=== PATIENT | female | born 1955 | race Caucasian/White ===

== ENCOUNTER 2023-02-12 10:12 | Outpatient (CLI) | payer MEDICARE, BC | END 2023-02-12 10:13 | disposition home or self-care (01) | LOC: DTY/OP 10:12 | PROVIDERS: ATTEND Internal Medicine | DX: G35 Multiple sclerosis (principal); E11.9 Type 2 diabetes mellitus without complications; M10.00 Idiopathic gout, unspecified site; E78.5 Hyperlipidemia, unspecified; I10 Essential (primary) hypertension | CPT/HCPCS: 97802 ==

== ENCOUNTER 2023-11-13 23:47 | Inpatient (IN) | payer BC, MEDICARE ==
[2023-11-13] MEDS ORDERED: KETAMINE 100 MG/ML (5ML VIAL) ONE (23:57)
[2023-11-13] MEDS ORDERED: Rocuronium Bromide 10 MG/ML (10ML VIAL) ONE (23:58)
[2023-11-14] MEDS ORDERED: fentaNYL 50 mcg/mL 1 mL Vial ONE (00:03)
[2023-11-14 00:07] LABS: #Eosinphils 0.1 thou/uL (0.0-0.7); #Monocytes 0.4 thou/uL (0.11-0.59); #Neutrophils 3.9 thou/uL (1.40-6.50); %Basophils 0.8 % (0.0-1.0); %Eosinophils 2.3 % (0.0-10.0); %Lymphocytes 11.7 % (21.0-51.0); %Monocytes 7.2 % (0.0-10.0); %Neutrophils 76.8 % (42.0-75.0); Hematocrit 39.3 % (36.0-47.0); Mean Corpuscular HGB CONC 33.1 g/dL (32.0-36.0); Mean Corpuscular Volume 90.6 fl (78.0-98.0); Mean Platelet Volume 11.2 fL (7.4-10.4); Platelet Count 141 10x3/uL (130-400); RBC Distribution Width 14.8 % (11.5-14.5); Red Blood Cell (RBC) Count 4.34 mill/uL (4.20-5.40); White Blood Cell (WBC) Count 5.1 10x3/uL (4.8-10.8)
[2023-11-14] MEDS ORDERED: Fentanyl CADD 100 ML IV SCH (00:15)
[2023-11-14] MEDS ORDERED: levETIRAcetam 500 MG (5 mL) VIAL ONE (00:24)
[2023-11-14 00:27] LABS: Analyzer IN Cardio ER; Base Excess (BEa) -2.4 mEq/L (-2.0 to +3.0); CO2 Tension 28.5 mmHg (35.0-45.0); Calcium, Ionized (arterial) 1.32 mmol/L (1.12-1.30); Carboxyhemoglobin (COHb) 0.9 gm% (0.0-3.0); Hematocrit-ABG 40 % (36.0-47.0); Hemoglobin (Hb) 13.7 g/dL (12.0-16.0); O2 Tension (PaO2), arterial 300.9 mmHg (> 70.0); Potassium - ABG Lab 4.33 mmol/L (3.70-5.30); pH, Arterial 7.465 (7.35-7.45)
[2023-11-14 00:30] LABS: ALT (SGPT) 36 U/L (8-55); AST (SGOT) 36 U/L (5-34); Albumin 4.2 g/dL (3.4-4.8); Alkaline Phosphatase 58 U/L (40-110); Anion Gap 15 mmol/L (10-20); BUN (Urea Nitrogen) 37 mg/dL (9.8-20.1); Bilirubin, Total 0.4 mg/dL (0.2-1.2); Calc. Creatinine Clearance 0 mL/min (70-130); Calcium 11.1 mg/dL (7.8-10.44); Carbon Dioxide 19 mmol/L (23-31); Chloride 107 mmol/L (98-107); Estimated GFR 36; Globulin 3.6 g/dL (2.4-3.5); Glucose 257 mg/dL (80-115); Potassium 4.2 mmol/L (3.5-5.1); Protein, Total 7.8 g/dL (5.8-8.1); Sodium 137 mmol/L (136-145)
[2023-11-14 00:34] LABS: ALV-art Gradient 19.975 mmHg (0-20); Puncture Site LRA
[2023-11-14 00:36] LABS: Acetaminophen Less than 10 mcg/mL (10.0-30.0); Alcohol Less than 10.0 mg/dL (Less than 10); Magnesium 1.3 mg/dL (1.6-2.6); Salicylate Less than 8.0 mg/dL (15.0-30.0)
[2023-11-14 00:41] LABS: Troponin I Less than 0.010 ng/mL (< 0.028)
[2023-11-14 01:34] LABS: Bacteria/HPF 4+ HPF (None Seen); Bilirubin Negative (Negative); Blood, Urine Trace (Negative); CAUTI Indications for Culture Alt mental st,lethar; Clarity Turbid (Clear); Glucose, Urine (Dipstick) Normal (Negative); Ketone, Urine 10 mg/dL (Negative); Leukocyte 75 Leu/uL (Negative); Nitrite Negative (Negative); Protein, Urine (Dipstick) 20 mg/dL (Neg-Trace); RBC/HPF 0-3 HPF (0-3); Specific Gravity, Urine 1.021 (1.002-1.036); Squamous Epithelial 0-3 HPF (0-3); Urobilinogen Normal mg/dL (Less than 2)
[2023-11-14 01:36] LABS: Urine Culture Reflex No No
[2023-11-14 01:39] LABS: Amphetamine Not Detected (NotDetected); Barbiturates Screen Not Detected (NotDetected); Benzodiazepine Screen Not Detected (NotDetected); Cocaine Metabolite Screen Not Detected (NotDetected); Methadone Not Detected (NotDetected); Methamphetamine Not Detected (NotDetected); Opiate Screen Detected (NotDetected); Oxycodone Screen Not Detected (NotDetected); Phencyclidine (PCP) Not Detected (NotDetected); THC/Cannabinoid Screen Not Detected (NotDetected); Tricyclic Screen Not Detected (NotDetected)
[2023-11-14] MEDS ORDERED: Propofol 1,000 MG/100 ML VIAL IV ONE (01:39)
[2023-11-14] MEDS ORDERED: Glucagon 1 MG/ML KIT IM PRN (02:28)
[2023-11-14] MEDS ORDERED: Ventilator Sedation Protocol 1 EACH FS SCH (02:28)
[2023-11-14] MEDS ORDERED: Dextrose 50% Abboject 50 ML SYRINGE SLOW IVP PRN (02:28)
[2023-11-14] MEDS ORDERED: Dextrose 5% in Water 1,000 ML IV PRN (02:28)
[2023-11-14] MEDS ORDERED: Magnesium 2 GM/50 ML(in water) 2 GM in Premix 1 BAG IVPB SCH (02:45)
[2023-11-14] MEDS ORDERED: Propofol 1,000 MG/100 ML VIAL IV PRN (03:00)
[2023-11-14] MEDS ORDERED: Lorazepam 2 MG/ML VIAL SLOW IVP PRN (03:00)
[2023-11-14] MEDS ORDERED: Morphine 2 MG/ML VIAL SLOW IVP PRN (03:00)
[2023-11-14] MEDS ORDERED: Fentanyl BOLUS 250 ML IVPB PRN (03:00)
[2023-11-14] MEDS ORDERED: Propofol BOLUS 1,000 MG/100 ML VIAL IV PRN (03:00)
[2023-11-14] MEDS: Sodium Chloride 0.9% 1,000 ML IV SCH ×2 (04:24→13:57)
[2023-11-14] MEDS: HumaLOG 300 UNITS/3 ML VIAL SC PRN ×4 (04:44→21:40)
[2023-11-14 06:51] LABS: ALT (SGPT) 27 U/L (8-55); AST (SGOT) 24 U/L (5-34); Albumin 3.4 g/dL (3.4-4.8); Alkaline Phosphatase 46 U/L (40-110); Anion Gap 14 mmol/L (10-20); BUN (Urea Nitrogen) 32 mg/dL (9.8-20.1); Bilirubin, Total 0.3 mg/dL (0.2-1.2); Calc. Creatinine Clearance 76 mL/min (70-130); Calcium 9.1 mg/dL (7.8-10.44); Carbon Dioxide 17 mmol/L (23-31); Chloride 97 mmol/L (98-107); Estimated GFR 58; Globulin 2.5 g/dL (2.4-3.5); Glucose 293 mg/dL (80-115); Potassium 3.5 mmol/L (3.5-5.1); Protein, Total 5.9 g/dL (5.8-8.1); Sodium 124 mmol/L (136-145)
[2023-11-14] MEDS ORDERED: FLU VACC QS2023(65UP)/MF59C/PF 60 MCG/0.5 ML SYRINGE IM ONE (09:00)
[2023-11-14] MEDS: Gabapentin 300 MG CAP PO SCH ×2 (09:07→20:18)
[2023-11-14] MEDS: levETIRAcetam 500 MG (5 mL) VIAL SLOW IVP SCH ×2 (09:08→20:19)
[2023-11-14] MEDS: Enoxaparin 40 MG (0.4 mL) SYRINGE SC SCH (09:09)
[2023-11-14] MEDS: Pantoprazole 40 MG VIAL IVP SCH (09:09)
[2023-11-14] MEDS ORDERED: Iopamidol 370 76% 100 ML VIAL ONE (13:18)
[2023-11-14] MEDS: Atorvastatin Calcium 10 MG TAB PO SCH (20:18)
[2023-11-14] MEDS: cefTRIAXone\\ROCEPHIN 1 GM in Sodium Chloride 0.9% 100 ML IVPB SCH (20:18)
[2023-11-14] MEDS: Baclofen 10 MG TAB PO SCH (20:35)
[2023-11-14] MEDS: Docusate 100 MG CAP PO SCH (20:35)
[2023-11-14] MEDS: Pramipexole Di-HCl 0.125 MG TAB PO SCH (20:52)
[2023-11-14] MEDS ORDERED: Dimethyl Fumarate [Tecfidera] 240 MG PO SCH (21:00)
[2023-11-14] MEDS ORDERED: HYDROcodone/Acetaminophen 10/325 mg Tablet PO SCH (23:59)
[2023-11-15] MEDS: Sodium Chloride 0.9% 1,000 ML IV SCH ×2 (00:01→10:10)
[2023-11-15] MEDS ORDERED: DC Sedation Protocol FS ONE (00:21)
[2023-11-15 03:54] LABS: #Eosinphils 0.1 thou/uL (0.0-0.7); #Monocytes 0.4 thou/uL (0.11-0.59); %Basophils 0.4 % (0.0-1.0); %Eosinophils 2.4 % (0.0-10.0); %Lymphocytes 8.8 % (21.0-51.0); %Monocytes 7.1 % (0.0-10.0); %Neutrophils 80.7 % (42.0-75.0); Hematocrit 32.7 % (36.0-47.0); Hemoglobin 10.4 g/dL (12.0-16.0); Mean Corpuscular HGB CONC 31.8 g/dL (32.0-36.0); Mean Corpuscular Hemoglobin 30.1 pg (27.0-31.0); Mean Corpuscular Volume 94.5 fl (78.0-98.0); Mean Platelet Volume 11.7 fL (7.4-10.4); Platelet Count 106 10x3/uL (130-400); RBC Distribution Width 15.3 % (11.5-14.5); Red Blood Cell (RBC) Count 3.46 mill/uL (4.20-5.40); White Blood Cell (WBC) Count 4.9 10x3/uL (4.8-10.8)
[2023-11-15 04:15] LABS: ALT (SGPT) 23 U/L (8-55); AST (SGOT) 22 U/L (5-34); Albumin 3.4 g/dL (3.4-4.8); Alkaline Phosphatase 44 U/L (40-110); Anion Gap 15 mmol/L (10-20); BUN (Urea Nitrogen) 21 mg/dL (9.8-20.1); Bilirubin, Total 0.2 mg/dL (0.2-1.2); Calc. Creatinine Clearance 81 mL/min (70-130); Calcium 8.6 mg/dL (7.8-10.44); Carbon Dioxide 15 mmol/L (23-31); Chloride 110 mmol/L (98-107); Estimated GFR 63; Globulin 2.5 g/dL (2.4-3.5); Glucose 188 mg/dL (80-115); Magnesium 1.3 mg/dL (1.6-2.6); Potassium 3.2 mmol/L (3.5-5.1); Protein, Total 5.9 g/dL (5.8-8.1); Sodium 137 mmol/L (136-145)
[2023-11-15] MEDS: HumaLOG 300 UNITS/3 ML VIAL SC PRN ×2 (04:20→22:53)
[2023-11-15] MEDS ORDERED: Electrolyte Replacement Protocol 1 EACH FS SCH (04:28)
[2023-11-15] MEDS ORDERED: Magnesium Sulfate In Water 4 GM in Premix 1 BAG IVPB SCH (04:45)
[2023-11-15 05:14] LABS: Anisocytosis SLIGHT = 6-15 cells HPF (0-5); CellaVision Operator ID LAB.JMM; Macrocytosis SLIGHT = 6-15 cells HPF (0-5); Platelet Adequacy Comment Platelets Decreased; Polychromasia SLIGHT = 2-3 cells HPF (0-2)
[2023-11-15] MEDS ORDERED: Potassium Chloride 20 MEQ in Premix 1 BAG IVPB SCH (06:00)
[2023-11-15] MEDS ORDERED: Potassium Chloride 20 MEQ TAB PO SCH (08:00)
[2023-11-15] MEDS: levETIRAcetam 500 MG (5 mL) VIAL SLOW IVP SCH (08:36)
[2023-11-15] MEDS: Enoxaparin 40 MG (0.4 mL) SYRINGE SC SCH (08:39)
[2023-11-15] MEDS: glipiZIDE 10 MG TAB PO SCH (08:40)
[2023-11-15] MEDS: Baclofen 10 MG TAB PO SCH ×2 (08:41→21:58)
[2023-11-15] MEDS: Docusate 100 MG CAP PO SCH ×2 (08:41→21:57)
[2023-11-15] MEDS: Estradiol 1 MG TAB PO SCH (08:42)
[2023-11-15] MEDS: Cyanocobalamin (Vitamin B-12) 1,000 MCG TAB PO SCH (08:42)
[2023-11-15] MEDS: Gabapentin 300 MG CAP PO SCH (08:43)
[2023-11-15] MEDS: Cholecalciferol 1,000 UNITS (25 MCG) TAB PO SCH (08:44)
[2023-11-15] MEDS: Pantoprazole 40 MG VIAL IVP SCH (08:45)
[2023-11-15] MEDS: Potassium Chloride 8 MEQ TAB PO SCH (08:54)
[2023-11-15] MEDS ORDERED: Loratadine 10 MG TAB PO SCH (09:15)
[2023-11-15] MEDS: levETIRAcetam 500 MG TAB PO SCH ×2 (09:33→21:58)
[2023-11-15] MEDS ORDERED: Zolpidem Tartrate 5 MG TAB PO PRN (17:11)
[2023-11-15] MEDS ORDERED: Gabapentin 300 MG CAP PO SCH (17:30)
[2023-11-15] MEDS: HYDROcodone/Acetaminophen 10/325 mg Tablet PO PRN (17:48)
[2023-11-15 18:31] VITALS: BMI 38.7
[2023-11-15] MEDS ORDERED: HYDROcodone/Acetaminophen 10/325 mg Tablet PO SCH (21:00)
[2023-11-15] MEDS: cefTRIAXone\\ROCEPHIN 1 GM in Sodium Chloride 0.9% 100 ML IVPB SCH (21:56)
[2023-11-15] MEDS: Pramipexole Di-HCl 0.125 MG TAB PO SCH (21:57)
[2023-11-15] MEDS: Atorvastatin Calcium 10 MG TAB PO SCH (21:57)
[2023-11-16] MEDS: HYDROcodone/Acetaminophen 10/325 mg Tablet PO PRN (04:05)
[2023-11-16 06:21] LABS: Anion Gap 13 mmol/L (10-20); BUN (Urea Nitrogen) 15 mg/dL (9.8-20.1); Calc. Creatinine Clearance 66 mL/min (70-130); Calcium 8.4 mg/dL (7.8-10.44); Carbon Dioxide 18 mmol/L (23-31); Chloride 109 mmol/L (98-107); Estimated GFR 46; Glucose 226 mg/dL (80-115); Potassium 3.5 mmol/L (3.5-5.1); Sodium 136 mmol/L (136-145)
[2023-11-16] MEDS ORDERED: Potassium Chloride 20 MEQ TAB PO SCH (08:00)
[2023-11-16] MEDS: Enoxaparin 40 MG (0.4 mL) SYRINGE SC SCH (09:11)
[2023-11-16] MEDS: Potassium Chloride 8 MEQ TAB PO SCH (09:12)
[2023-11-16] MEDS: Loratadine 10 MG TAB PO SCH (09:12)
[2023-11-16] MEDS: Cyanocobalamin (Vitamin B-12) 1,000 MCG TAB PO SCH (09:12)
[2023-11-16] MEDS: levETIRAcetam 500 MG TAB PO SCH ×2 (09:13→20:42)
[2023-11-16] MEDS: glipiZIDE 10 MG TAB PO SCH (09:13)
[2023-11-16] MEDS: Gabapentin 300 MG CAP PO SCH ×2 (09:13→20:41)
[2023-11-16] MEDS: Cholecalciferol 1,000 UNITS (25 MCG) TAB PO SCH (09:13)
[2023-11-16] MEDS: Estradiol 1 MG TAB PO SCH (09:15)
[2023-11-16] MEDS: Docusate 100 MG CAP PO SCH ×2 (09:15→20:42)
[2023-11-16] MEDS: Baclofen 10 MG TAB PO SCH ×2 (09:15→20:42)
[2023-11-16] MEDS: HumaLOG 300 UNITS/3 ML VIAL SC PRN ×2 (13:42→21:40)
[2023-11-16] MEDS: Nitrofurantoin Monohyd/M-Cryst 100 MG CAP PO SCH (20:41)
[2023-11-16] MEDS: Atorvastatin Calcium 10 MG TAB PO SCH (20:42)
[2023-11-16] MEDS: Pramipexole Di-HCl 0.125 MG TAB PO SCH (20:54)
[2023-11-17] MEDS: Cyanocobalamin (Vitamin B-12) 1,000 MCG TAB PO SCH (08:43)
[2023-11-17] MEDS: Gabapentin 300 MG CAP PO SCH (08:44)
[2023-11-17] MEDS: glipiZIDE 10 MG TAB PO SCH (08:44)
[2023-11-17] MEDS: Baclofen 10 MG TAB PO SCH (08:44)
[2023-11-17] MEDS: Cholecalciferol 1,000 UNITS (25 MCG) TAB PO SCH (08:44)
[2023-11-17] MEDS: Nitrofurantoin Monohyd/M-Cryst 100 MG CAP PO SCH (08:44)
[2023-11-17] MEDS: Estradiol 1 MG TAB PO SCH (08:44)
[2023-11-17] MEDS: levETIRAcetam 500 MG TAB PO SCH (08:45)
[2023-11-17] MEDS: Enoxaparin 40 MG (0.4 mL) SYRINGE SC SCH (08:45)
[2023-11-17] MEDS: Loratadine 10 MG TAB PO SCH (08:45)
[2023-11-17] MEDS: Docusate 100 MG CAP PO SCH (08:45)
[2023-11-17] MEDS: Potassium Chloride 8 MEQ TAB PO SCH (08:45)
[2023-11-17 12:15] VITALS: TEMP 96.7
[2023-11-17 15:22] VITALS: BP 165/90
== END 2023-11-17 16:10 | disposition home or self-care (01) | DRG 100 ==
LOC: ERS 23:47 → CCU 11-14 02:34 → 2SE 11-15 16:08
PROVIDERS: ADMIT Family Medicine; ATTEND Family Medicine
PROC: 0T9B70Z Drainage of Bladder with Drainage Device, Via Natural or Artificial Opening (ICD-10-PCS; principal; 2023-11-14)
PROC: 0DH67UZ Insertion of Feeding Device into Stomach, Via Natural or Artificial Opening (ICD-10-PCS; 2023-11-14)
PROC: 0BH17EZ Insertion of Endotracheal Airway into Trachea, Via Natural or Artificial Opening (ICD-10-PCS; 2023-11-14)
PROC: 4A033R1 Measurement of Arterial Saturation, Peripheral, Percutaneous Approach (ICD-10-PCS; 2023-11-14)
PROC: 5A1935Z Respiratory Ventilation, Less than 24 Consecutive Hours (ICD-10-PCS; 2023-11-14)
PROC: 4A00X4Z Measurement of Central Nervous Electrical Activity, External Approach (ICD-10-PCS; 2023-11-15)
DX: G40.409 Other generalized epilepsy and epileptic syndromes, not intractable, without status epilepticus (principal); J96.01 Acute respiratory failure with hypoxia; N17.9 Acute kidney failure, unspecified; N39.0 Urinary tract infection, site not specified; E87.1 Hypo-osmolality and hyponatremia; G35 Multiple sclerosis; E11.9 Type 2 diabetes mellitus without complications; I10 Essential (primary) hypertension; E78.5 Hyperlipidemia, unspecified; Z90.710 Acquired absence of both cervix and uterus; Z98.51 Tubal ligation status; Z79.899 Other long term (current) drug therapy; E83.42 Hypomagnesemia
CPT/HCPCS: 31500; 36415; 36416; 36600; 51702; 70496; 70498; 70551; 71045; 80048; 80053; 80306; 80307; 81001; 82805; 83735; 84443; 84484; 85025; 87077; 87086; 87186; 93005; 93306; 94002; 94003; 95711; 95816; 95819; 96361; 96365; 99292; C9113; J0696; J1650; J1815; J1953; J2704; J3010; J3475; J3490; J7050; Q9967

== ENCOUNTER 2024-05-16 13:44 | Outpatient (CLI) | payer MEDICARE | END 2024-05-16 13:45 | disposition home or self-care (01) | LOC: BICMRI 13:44 | PROVIDERS: ATTEND Internal Medicine | DX: G35 Multiple sclerosis (principal); R29.6 Repeated falls; Z53.9 Procedure and treatment not carried out, unspecified reason | CPT/HCPCS: 82565 ==